=== PATIENT | male | born 1945 ===

== ENCOUNTER 2018-11-18 16:41 | Inpatient (IN) | payer OTHER ==
[~2018-11-18] VITALS: Ht 175.3 cm; Wt 102.1 kg
[2018-11-18] MEDS ORDERED: ADULT ASPIRIN81 MG (17:17)
[2018-11-18] MEDS ORDERED: CARDURA XL4 MG (17:17)
[2018-11-18] MEDS ORDERED: COZAAR100 MG (17:18)
[2018-11-18] MEDS ORDERED: SODIUM BICARBO650 MG (17:18)
[2018-11-18] MEDS ORDERED: AMLODIPINE BESYL5 MG (17:19)
[2018-11-18] MEDS ORDERED: FUROSEMIDE20 MG (17:19)
[2018-11-18] MEDS ORDERED: TOPROL XL50 M1 (17:20)
[2018-11-18] MEDS ORDERED: ALLOPURINOL100 MG (17:20)
[2018-11-18] MEDS ORDERED: LIPITOR20 MG (17:21)
[2018-11-18] MEDS ORDERED: FOLIC ACID1 MG (17:21)
[2018-11-18] MEDS ORDERED: ISOSORBIDE DINI30 MG (17:21)
--- NOTE | 2018-11-18 17:21 | NUR ---
PTE SE RECIBE POR CALANBRE REFIERE PTE.
[2018-11-23] MEDS ORDERED: NORVASC2.5 M1 PO (11:36)
[2018-11-23] MEDS ORDERED: FUROSEMIDE20 MG PO (11:36)
== END 2018-11-23 13:39 | disposition home or self-care (01) | DRG 305 ==
LOC: ER 16:41 → SEC-K 23:15 → MEDI 23:15 → MEDJ 11-19 03:18 → MEDI 11-19 03:18
PROVIDERS: ADMIT Internal Medicine
PROC: BT43ZZZ Ultrasonography of Bilateral Kidneys (ICD-10-PCS; principal; 2018-11-18)
DX: I13.10 Hypertensive heart and chronic kidney disease without heart failure, with stage 1 through stage 4 chronic kidney disease, or unspecified chronic kidney disease (principal); N17.8 Other acute kidney failure; E78.00 Pure hypercholesterolemia, unspecified; I25.10 Atherosclerotic heart disease of native coronary artery without angina pectoris; N18.9 Chronic kidney disease, unspecified; E87.5 Hyperkalemia; E11.65 Type 2 diabetes mellitus with hyperglycemia; Z86.19 Personal history of other infectious and parasitic diseases

== ENCOUNTER 2021-12-09 16:07 | Emergency (ER) | payer OTHER ==
[~2021-12-09] VITALS: Ht 175.3 cm; Wt 104.3 kg
[~2021-12-09 16:07] MED LIST: ADULT ASPIRIN81 MG; ALLOPURINOL100 MG; AMLODIPINE BESYL5 MG; CARDURA XL4 MG; COZAAR100 MG; FOLIC ACID1 MG; FUROSEMIDE20 MG; FUROSEMIDE20 MG PO; ISOSORBIDE DINI30 MG; LIPITOR20 MG; NORVASC2.5 M1 PO; SODIUM BICARBO650 MG; TOPROL XL50 M1
[2021-12-09] MEDS ORDERED: IRBESARTAN300 MG (16:21)
[2021-12-09] MEDS ORDERED: ECOTRIN81 MG (16:22)
== END 2021-12-09 19:38 | disposition home or self-care (01) ==
LOC: ER 16:07
DX: R68.83 Chills (without fever) (principal); N28.9 Disorder of kidney and ureter, unspecified; D64.9 Anemia, unspecified; Z20.822 Contact with and (suspected) exposure to COVID-19

== ENCOUNTER 2022-01-25 11:37 | Emergency (ER) | payer OTHER ==
[~2022-01-25] VITALS: Ht 175.3 cm; Wt 99.8 kg
[~2022-01-25 11:37] MED LIST changes: +ECOTRIN81 MG; +IRBESARTAN300 MG
== END 2022-01-26 10:36 | disposition home or self-care (01) ==
LOC: ER 11:37
DX: J06.9 Acute upper respiratory infection, unspecified (principal); Z20.822 Contact with and (suspected) exposure to COVID-19; I13.10 Hypertensive heart and chronic kidney disease without heart failure, with stage 1 through stage 4 chronic kidney disease, or unspecified chronic kidney disease; E11.22 Type 2 diabetes mellitus with diabetic chronic kidney disease; E11.65 Type 2 diabetes mellitus with hyperglycemia; N18.30 Chronic kidney disease, stage 3 unspecified; E87.5 Hyperkalemia; K57.92 Diverticulitis of intestine, part unspecified, without perforation or abscess without bleeding; D64.9 Anemia, unspecified; E78.00 Pure hypercholesterolemia, unspecified; M10.9 Gout, unspecified; Z86.19 Personal history of other infectious and parasitic diseases; E86.0 Dehydration